=== PATIENT | female | born 1995 | race Caucasian/White ===

== ENCOUNTER 2019-04-14 19:22 | Emergency (ER) | payer OTHER, SELFPAY ==
[2019-04-14 19:40] VITALS: BP 153/98; PULSE 102; RESP 18; TEMP 36.9; O2SAT 100
--- NOTE | 2019-04-14 20:27 | DI.CT.S_ITS ---
PROCEDURE: CT HEAD/BRAIN WO CON INDICATIONS: headache TECHNIQUE: Noncontrast 4.5 mm thick angled axial sections acquired from the foramen magnum to the vertex, with coronal and sagittal reformats. For radiation dose reduction, the following was used: automated exposure control, adjustment of mA and/or kV according to patient size. COMPARISON: None. FINDINGS: Image quality: Excellent. CSF spaces: Basal cisterns are patent. No extra-axial fluid collections. Ventricles are normal in size and shape. Brain: No midline shift. No intracranial masses or hemorrhage. Shirley-white matter interface is normal. Skull and face: Calvarium and visualized facial bones are intact, without suspicious lesions. Sinuses: Visualized sinuses and mastoids are clear. IMPRESSION: No acute intracranial abnormality demonstrated. Dictated by: Rj Bartlett M.D. on 04/14/2019 at 20:59 Approved by: Rj Bartlett M.D. on 04/14/2019 at 21:00
[2019-04-14 21:02] LABS: Add Manual Diff / Slide Review NO; Basophils Absolute Auto 0 /uL (0-100); Basophils Percent Auto 0.4 % (0-2); Eosinophils Absolute Auto 400 /uL (0-450); Eosinophils Percent Auto 3.1 % (2-4); Hematocrit 39.3 % (36-46); Hemoglobin 13.2 g/dL (12.0-16.0); Lymphocytes Absolute Auto 3100 /uL (1100-4500); Lymphocytes Percent Auto 25.1 % (25-40); Mean Corpuscular HGB Conc 33.7 % (30-36); Mean Corpuscular Hemoglobin 28.5 PG (26-34); Mean Corpuscular Volume 84.7 fL (80-100); Monocytes Absolute Auto 800 /uL (0-900); Monocytes Percent Auto 6.2 % (3-14); Neutrophils Absolute Auto 8100 /uL (1500-7000); Neutrophils Percent Auto 65.2 % (50-75); Platelet Count 231 X10^3/uL (150-400); Red Blood Cell Count 4.64 X10^6/uL (4.0-5.2); Red Cell Distribution Width 13.2 % (11.6-14.8); White Blood Cell Count 12.4 X10^3/uL (4.5-11.0)
[2019-04-14 21:11] LABS: Alanine Aminotransferase 17 IU/L (<35); Albumin 4.4 g/dL (3.5-5.0); Albumin Globulin Ratio 1.3 (1.0-2.8); Alkaline Phosphatase 111 U/L (38-126); Aspartate Aminotransferase 22 IU/L (14-36); BUN Creatinine Ratio 14.3 (6-22); Bilirubin Total 0.5 mg/dL (0.2-1.3); Blood Urea Nitrogen 10 mg/dL (7-17); Calcium 9.5 mg/dL (8.4-10.2); Carbon Dioxide 27 mmol/L (22-32); Chloride 105 mmol/L (98-107); Estimated Glomerular Filt Rate > 60.0 mL/min (>60); Globulin 3.3 g/dL (1.7-4.1); Glucose 88 mg/dL (70-100); HEMOLYSIS < 15 (0-50); Potassium 3.9 mmol/L (3.4-5.1); Sodium 140 mmol/L (137-145); Total Protein 7.7 g/dL (6.3-8.2)
--- NOTE | 2019-04-14 22:06 | ED.HA ---
HPI - Headache General Chief Complaint: Headache Stated Complaint: crying, numbness, tingling, visual changes Time Seen by Provider: 04/14/19 22:05 Source: patient Mode of arrival: Ambulatory Limitations: no limitations History of Present Illness HPI Narrative: This is a 24-year-old female comes to the emergency department with complaint of vision changes, tingling or in her hand and then migraine. Patient has had a history of migraines, she states the pain is similar to her typical migraine is. Patient states that she was at the [facility] [employer]. She had a couple sips of beer and then developed tingling in her fingers on her right hand that went through each finger cycling through and into her palm. She also developed some flashes in both of her eyes and then developed headache within about 20 minutes. Patient states she felt very weird, she felt like everything was very ?trip E? patient states she then developed a headache afterwards. She states that location headache across her forehead and right cheek is a typical location for her.. Patient has not had any fevers. She did not have any difficulty with movement, no difficulty with speech, no facial droop. She has not had any chest pain or shortness of breath. She is nauseated but not having vomiting. She typically does have nausea and vomiting with her migraines. Patient denies any other medical history other than obesity, SVT. She has had some oral surgery remotely but no other surgical history. She states she has an allergy to singular. Denies tobacco, occasional alcohol. She has not had any additional alcohol this evening. She denies any substance abuse. Patient states that she does not think that she had any other ingestions or potential for being roofied. Related Data Home Medications Medication Instructions Recorded Confirmed ipratropium 20 mcg-albuterol 100 1 puff INHALATION Q6H 03/30/18 05/28/18 mcg/actuation mist for inhalation cholecalciferol (vitamin D3) 25 1,000 unit PO DAILY 05/28/18 05/28/18 mcg (1,000 unit) capsule etonogestrel 68 mg subdermal SUBDERMAL each 05/28/18 05/28/18 implant magnesium oxide 500 mg capsule 500 mg PO DAILY cap 05/28/18 05/28/18 Previous Rx's Medication Instructions Recorded albuterol sulfate 90 mcg/actuation 2 puff INHALATION Q4-6H PRN #8.5 03/30/18 aerosol inhaler gram inhalational spacing device #1 each 05/20/18 beclomethasone dipropionate 40 1 puff INHALATION BID #10.6 gram 05/28/18 mcg/actuation HFA breath activated aerosol Allergies Allergy/AdvReac Type Severity Reaction Status Date / Time montelukast [From Singulair] Allergy rash Verified 04/14/19 19:48 Review of Systems Review of Systems ROS Unobtainable: All systems reviewed & are unremarkable except as noted in HPI and below Patient History Medical History Anxiety (Chronic ~2015) Asthma (Chronic ~1994) Depression (Chronic ~2015) Seasonal allergies (Chronic ~1994) SVT (supraventricular tachycardia) (Chronic ~2014) Surgical History (Updated 07/14/18 @ 20:43 by Diane Aburto) Anesthesia (Resolved) History of tonsillectomy (Resolved ~2001) [place] teeth removed (Resolved ~2009) Family History (Updated 07/14/18 @ 20:47 by Diane Aburto) Father Stroke Heart disease Hypertension Hyperlipidemia Mental health problem Mother Family history of thyroid problem Mental health problem Sister Acne Mental health problem Grandfather Villagomez Skin cancer Mental health problem Grandmother Alzheimer's disease Social History Smoking Status: Current some day smoker Smoking Status: Current some day smoker alcohol intake frequency: a few times a week Substance Use Type: does not use Exam Narrative Exam Narrative: GEN: well nourished, well appearing obese female, alert and oriented x 3, patient appears to be in mild distress. HEENT: Atraumatic, pupils are equal round reactive to light, extraocular movements are intact, mild photophobia, nares are clear, TMs are clear with no fluid, there is no conjunctival pallor. Throat is clear without any exudates, erythema, tonsillar enlargement or uvular deviation, no facial droop. No meningeal signs. No cervical lymphadenopathy. HEART: Regular rate and rhythm without murmur, clicks, rubs. LUNGS:Lungs clear to auscultation, no wheezes, rales, crackles, chest moves symmetrically ABD:bowel sounds normal, soft, non-tender, no guarding, rebound, rigidity, no masses noted, no hepatosplenomegaly :No CVA tenderness MSCL: Non-tender, no muscle atrophy, muscles strength 5/5 upper and lower extremities, full range of motion, normal gait NEURO:CN 2-12 intact, sensation normal. finger nose finger test normal, heel miller test normal Initial Vital Signs Initial Vital Signs: Vital Signs Temperature 98.4 F 04/14/19 19:40 Pulse Rate 102 H 04/14/19 19:40 Respiratory Rate 18 04/14/19 19:40 Blood Pressure 153/98 H 04/14/19 19:40 Pulse Oximetry 100 04/14/19 19:40 Course Orders Ordered: Discontinued Medications Ketorolac Tromethamine (Toradol) 30 mg IM NOW ONE Stop: 04/14/19 22:20 Last Admin: 04/14/19 22:29 Dose: 30 mg Documented by: MMCFARL Metoclopramide HCl (Reglan) 10 mg PO NOW ONE Stop: 04/14/19 22:20 Last Admin: 04/14/19 22:44 Dose: 10 mg Documented by: MMCFARL Vital Signs Vital signs: Vital Signs - 8 hr 04/14/19 19:40 Temperature 98.4 F Pulse Rate 102 H Respiratory Rate 18 Blood Pressure 153/98 H Pulse Oximetry 100 MDM - Headache Lab Data Attestation: I reviewed the patient's lab results. Result diagrams: 04/14/19 20:49 04/14/19 20:49 Labs: Lab Results 04/14/19 04/14/19 Range/Units 20:49 20:49 WBC 12.4 H (4.5-11.0) X10^3/uL RBC 4.64 (4.0-5.2) X10^6/uL Hgb 13.2 (12.0-16.0) g/dL Hct 39.3 (36-46) % MCV 84.7 (80-100) fL MCH 28.5 (26-34) PG MCHC 33.7 (30-36) % RDW 13.2 (11.6-14.8) % Plt Count 231 (150-400) X10^3/uL Neut % (Auto) 65.2 (50-75) % Lymph % (Auto) 25.1 (25-40) % [place] % (Auto) 6.2 (3-14) % Eos % (Auto) 3.1 (2-4) % Baso % (Auto) 0.4 (0-2) % Neut # (Auto) 8100 H (1993-3543) /uL Lymph # (Auto) 3100 (8045-4993) /uL [place] # (Auto) 800 (0-900) /uL Eos # (Auto) 400 (0-450) /uL Baso # (Auto) 0 (0-100) /uL Sodium 140 (137-145) mmol/L Potassium 3.9 (3.4-5.1) mmol/L Chloride 105 (98-107) mmol/L Carbon Dioxide 27 (22-32) mmol/L BUN 10 (7-17) mg/dL Creatinine 0.70 (0.52-1.04) mg/dL Estimated GFR > 60.0 (>60) mL/min BUN/Creatinine Ratio 14.3 (6-22) Glucose 88 (70-100) mg/dL Calcium 9.5 (8.4-10.2) mg/dL Total Bilirubin 0.5 (0.2-1.3) mg/dL AST 22 (14-36) IU/L ALT 17 (<35) IU/L Alkaline Phosphatase 111 (38-126) U/L Total Protein 7.7 (6.3-8.2) g/dL Albumin 4.4 (3.5-5.0) g/dL Globulin 3.3 (1.7-4.1) g/dL Albumin/Globulin Ratio 1.3 (1.0-2.8) Point of Care Testing Test Results Negative Urine Dip Bedside Urine Glucose Negative Bedside Urine Bilirubin - Negative Bedside Urine Ketone - Negative Urine Specific [place] 1.010 Bedside Urine Occult Blood - Negative Bedside Urine pH 6.5 Bedside Urine Protein - Negative Bedside Urine Urobilinogen - Negative Bedside Urine Nitrite - Negative Bedside Urine Leukocytes - Negative Esterase Imaging Data CT scan - head: Radiologist's Impression: [address] [address] [address] Scan Report Signed Patient: Imelda Capone EMR#: [id number] : 1995Acct:[id number] Age/Sex: 24 / FDate of Service: 04/14/19 Loc: ED Accession Number: [id number] Procedure: CT head/brain wo con Ordering Provider: China Barrera D.O. PROCEDURE: CT HEAD/BRAIN WO CON INDICATIONS: headache TECHNIQUE: Noncontrast 4.5 mm thick angled axial sections acquired from the foramen magnum to the vertex, with coronal and sagittal reformats. For radiation dose reduction, the following was used: automated exposure control, adjustment of mA and/or kV according to patient size. COMPARISON: None. FINDINGS: Image quality: Excellent. CSF spaces: Basal cisterns are patent. No extra-axial fluid collections. Ventricles are normal in size and shape. Brain: No midline shift. No intracranial masses or hemorrhage. Shirley-white matter interface is normal. Skull and face: Calvarium and visualized facial bones are intact, without suspicious lesions. Sinuses: Visualized sinuses and mastoids are clear. IMPRESSION: No acute intracranial abnormality demonstrated. Dictated by: Rj Bartlett M.D. on 04/14/2019 at 20:59 Approved by: Rj Bartlett M.D. on 04/14/2019 at 21:00 [facility] Narrative Medical decision making narrative: CT of head is negative, mildly elevated white count, otherwise normal labs with negative point of care urine and test. I suspect patient is likely having or secondary to migraine but imaging was ordered because of her atypical presentation. She has had migraines many time but does not typically have any kind of or or symptoms such as this with the flashers or tingling in her hand. NIH was 0 with no neurologic deficits or changes my suspicion for TIA is low, she is afebrile with no signs of meningitis or other infection. Ct head is negative with elevated wbc, poc preg and urine is negative. Patient had improvement of headache after Toradol and fluids and was sleeping. Awakened a requested to return home. Discharge Plan Departure Patient Disposition: Home Clinical Impression: Migraine Discharge Date/Time: 04/14/19 23:44 Instructions: DI for Migraine Activity Restrictions/Additional Instructions: Follow-up with primary care in the next week for recheck. You may wish to talk with your physician about a neurology referral. Continue home medications as prescribed. Return to emergency department for severe worsening headaches, altered mental status, new weakness, loss of sensation, inability to collar turner, difficulty with moving your extremities, facial droop, difficulty with speech, new chest pain or shortness of breath, persistent vomiting, passing out or other new or concerning symptoms. Prescriptions: No Action Nexplanon 68 mg implant Subdermal RF: 0 magnesium oxide 500 mg capsule 500 mg PO DAILY RF: 0 cholecalciferol (vitamin D3) 1,000 unit capsule 1,000 unit PO DAILY RF: 0 Qvar RediHaler 40 mcg/actuation HFA aerosol breath activated 1 puff INHALATION BID Qty: 10.6 RF: 5 ipratropium-albuterol [Combivent Respimat] 20-100 mcg/actuation mist 1 puff INHALATION Q6H RF: 0 albuterol sulfate 90 mcg/actuation HFA aerosol inhaler 2 puff INHALATION Q4-6H PRN (Reason: shortness of breath) Qty: 8.5 RF: 1 (DME) Aerochamber MV spacer See Dose Instructions .ROUTE .MEDSUPPLY Qty: 1 RF: 0 Stand Alone Forms: Work Release Note
[2019-04-14] MEDS: KETOROLAC 60 MG/2 ML VIAL 30 MG IM (22:29)
[2019-04-14] MEDS: METOCLOPRAMIDE HCL 10 MG TABLET PO (22:44)
== END 2019-04-14 23:44 | disposition home or self-care (01) ==
PROVIDERS: Emergency Provider Emergency Medicine
DX: G43.909 Migraine, unspecified, not intractable, without status migrainosus (principal); D72.829 Elevated white blood cell count, unspecified
CPT/HCPCS: 36415; 70450; 80053; 81003; 81025; 85025; 96372; 99284; J1885

== ENCOUNTER → 2020-02-06 10:34 | Outpatient (CLI) | payer OTHER, SELFPAY ==
[2020-02-06 12:19] LABS: Hematocrit 38.4 % (36-46); Hemoglobin 13.1 g/dL (12.0-16.0); Mean Corpuscular HGB Conc 34.1 % (30-36); Mean Corpuscular Hemoglobin 30.1 PG (26-34); Mean Corpuscular Volume 88.1 fL (80-100); Platelet Count 205 X10^3/uL (150-400); Red Blood Cell Count 4.36 X10^6/uL (4.0-5.2); Red Cell Distribution Width 12.6 % (11.6-14.8)
[2020-02-06 12:44] LABS: Alanine Aminotransferase 16 IU/L (<35); Albumin 3.9 g/dL (3.5-5.0); Albumin Globulin Ratio 1.3 (1.0-2.8); Alkaline Phosphatase 88 U/L (38-126); Aspartate Aminotransferase 19 IU/L (14-36); BUN Creatinine Ratio 16.9 (6-22); Bilirubin Total 0.6 mg/dL (0.2-1.3); Blood Urea Nitrogen 11 mg/dL (7-17); Calcium 8.9 mg/dL (8.4-10.2); Carbon Dioxide 26 mmol/L (22-32); Chloride 107 mmol/L (98-107); Cholesterol 155 mg/dL (140-199); Estimated Glomerular Filt Rate > 60.0 mL/min (>60); Glucose 85 mg/dL (70-100); HDL Cholesterol 31 mg/dL (40-60); HEMOLYSIS < 15 (0-50); LDL Cholesterol Calculated 111 mg/dL (<100); Potassium 4.2 mmol/L (3.4-5.1); Sodium 138 mmol/L (137-145); Total Protein 6.9 g/dL (6.3-8.2); Triglycerides 63 mg/dL (35-150)
[2020-02-06 13:14] LABS: Urine N gonorrhoeae NOT DETECTED
[2020-02-06 13:32] LABS: Urine Chlamydia NOT DETECTED
[2020-02-06 19:01] LABS: Hepatitis B Surface Antigen NEGATIVE s/c (NEGATIVE)
[2020-02-06 19:11] LABS: HIV 1 & 2 Ab/Ag 4th Gen Combo NEGATIVE (NEGATIVE); Hep C Virus Ab w/Reflex Quant NEGATIVE s/c (NEGATIVE)
[2020-02-07 04:36] LABS: HSV 2 IGG AB < 0.91 index (0.00-0.90)
[2020-02-07 07:09] LABS: RPR Screen Non Reactive (Non Reactive)
== END ==
PROVIDERS: PCP Registered Nurse Diabetes Educator; Referring Provider Registered Nurse Diabetes Educator; Visit Provider Registered Nurse Diabetes Educator
DX: Z00.00 Encounter for general adult medical examination without abnormal findings (principal); E66.9 Obesity, unspecified; Z72.51 High risk heterosexual behavior
CPT/HCPCS: 36415; 80053; 80061; 84443; 85027; 86592; 86695; 86696; 86803; 87340; 87389; 87491; 87591

== ENCOUNTER → 2020-02-16 10:39 | Outpatient (CLI) | payer OTHER, SELFPAY ==
--- NOTE | 2020-02-16 10:40 | DI.US.S_ITS ---
PROCEDURE: US PELVIC COMPLETE INDICATIONS: DYSMENORRHEA; POSSIBLE PCOS TECHNIQUE: Real-time scanning was performed of the pelvic organs, with image documentation. Additional endovaginal scanning was necessary due to incomplete visualization of the adnexal and endometrial structures by transabdominal scanning. COMPARISON: None. FINDINGS: Transabdominal scanning: Limited scanning through the kidneys shows no hydronephrosis. No pathologic free abdominal or pelvic fluid. Endovaginal scanning: Uterus: Uterus is normal in size at 6 x 2.8 x 3.6 cm. The endometrium measures 16 mm in combined thickness. Ovaries: The right ovary measures 3.8 x 3 x 3.5 cm and demonstrates 2 simple appearing cysts, which measure up to 3.6 and 3.5 cm, respectively. The left ovary measures 3.2 x 1.9 x 2 x 2 cm. Although not well seen on this study, the left ovary is believed to have more than 12 follicles, which are seen along the periphery. Less than 12 follicles can be seen involving each ovary. No adnexal masses are seen. IMPRESSION: 2 simple appearing cysts are seen involving the right ovary. In a patient of this age, these are almost certainly benign. At clinical discretion, a followup pelvic ultrasound is suggested in 6 weeks to assure resolution/ improvement. There are believed to be more than 12 follicles of the left ovary. This is consistent with polycystic ovarian syndrome. Dictated by: Nikita Nova M.D. on 02/16/2020 at 11:55 Approved by: Nikita Nova M.D. on 02/16/2020 at 11:57
== END ==
PROVIDERS: PCP Registered Nurse Diabetes Educator; Referring Provider Registered Nurse Diabetes Educator; Visit Provider Registered Nurse Diabetes Educator
DX: N94.6 Dysmenorrhea, unspecified (principal); N83.201 Unspecified ovarian cyst, right side
CPT/HCPCS: 76830; 76856

== ENCOUNTER → 2020-03-02 11:49 | Outpatient (CLI) | payer OTHER, SELFPAY | PROVIDERS: PCP Registered Nurse Diabetes Educator; Visit Provider Student in an Organized Health Care Education/Training Program | DX: R30.0 Dysuria (principal) | CPT/HCPCS: 87086 ==

== ENCOUNTER → 2020-06-01 17:25 | Outpatient (CLI) | payer OTHER, SELFPAY ==
[2020-06-01 19:07] LABS: COVID19 -Nasal RAPID Negative (Negative)
== END ==
PROVIDERS: PCP Registered Nurse Diabetes Educator; Visit Provider Physician Assistant
DX: Z20.822 Contact with and (suspected) exposure to COVID-19 (principal)
CPT/HCPCS: 87635

== ENCOUNTER → 2020-09-26 14:14 | Outpatient (CLI) | payer OTHER, SELFPAY ==
[2020-09-26 14:41] LABS: COVID19 -Nasal RAPID Negative (Negative)
[2020-09-26 15:36] LABS: Monotest Negative (Negative)
== END ==
PROVIDERS: PCP Registered Nurse Diabetes Educator; Referring Provider Physician Assistant; Visit Provider Physician Assistant
DX: Z20.822 Contact with and (suspected) exposure to COVID-19 (principal); J02.9 Acute pharyngitis, unspecified
CPT/HCPCS: 36415; 86318; 87070; 87635

== ENCOUNTER → 2020-11-23 19:16 | Outpatient (CLI) | payer OTHER, SELFPAY ==
[2020-11-23 20:29] LABS: COVID19 -Nasal RAPID Negative (Negative)
== END ==
PROVIDERS: PCP Registered Nurse Diabetes Educator; Visit Provider Nurse Practitioner
DX: Z20.822 Contact with and (suspected) exposure to COVID-19 (principal)
CPT/HCPCS: 87635

== ENCOUNTER → 2021-07-19 11:52 | Outpatient (CLI) | payer OTHER, SELFPAY ==
--- NOTE | 2021-07-19 11:55 | DI.RAD.S_ITS ---
PROCEDURE: XR ANKLE LT MIN 3V INDICATIONS: left ankle injury TECHNIQUE: 3 views of the ankle were acquired. COMPARISON: None. FINDINGS: Bones: No fractures or dislocations. Ankle mortise is normally aligned. No suspicious bony lesions. Soft tissues: No tibiotalar joint effusion. Achilles tendon appears normal. IMPRESSION: No gross acute ankle fracture or dislocation. Ankle mortise is congruent. Dictated by: Jesus Rivera M.D. on 07/19/2021 at 12:28 Approved by: Jesus Rivera M.D. on 07/19/2021 at 12:34
== END ==
PROVIDERS: PCP Registered Nurse Diabetes Educator; Referring Provider Nurse Practitioner Family; Visit Provider Nurse Practitioner Family
DX: S99.912A Unspecified injury of left ankle, initial encounter (principal); X58.XXXA Exposure to other specified factors, initial encounter
CPT/HCPCS: 73610